=== PATIENT | female | born 1970 | race Two or more races ===

== ENCOUNTER 2024-02-07 05:59 | Inpatient (IN) | payer MEDICAID, OTHER ==
[~2024-02-07] VITALS: Ht 157.5 cm; Wt 72.7 kg
--- NOTE | 2024-02-07 06:19 | ECG ---
[facility] Test Date: 2024-02-07 Test Time: 06:03:27 Pat Name: TI LOGAN Department: ED Room: [address] [place] [address] Gender: F Reference Data Expert: SEDRICK : 1970 Requested By: RICHARD SCHROEDER Order Number: [id number] Reading MD: Rivas Nina Measurements Intervals [place] Rate: 115 P: 65 TN: 180 QRS: 55 QRSD: 93 T: 46 QT: 323 QTc: 447 Interpretive Statements Sinus tachycardia Ventricular premature complex Aberrant complex Electronically Signed On 02-10-2024 12:37:44 PST by Rivas Nina Please click the below link to view image of tracing.
--- NOTE | 2024-02-07 06:46 | ED.PDOC ---
History of Present Illness HPI Comments 53 Y F with PMHX of anxiety, presents to the ED with CC of chest pain. Patient states that she has been experiencing non-radiating chest pain since 0100 this morning, with associated symptoms of bilateral arm numbness and tremors. Patient states that she did consume two beers last night but denies any other heavy ETOH usage. Patient denies tobacco usage or illicit drugs use. Patient denies SOB, body aches, chills, cough, or nasal congestion. 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: Denies all AGRONOMY TECHNICIAN Hx Family History Family History: Unknown Social History Smoker: Non-Smoker Alcohol: Rarely Drugs: Denies Drug Use Lives In: Home Constitutional: denies: chills, diaphoresis, fatigue, fever, malaise, sweats, weakness, others EENTM: denies: blurred vision, double vision, ear bleeding, ear discharge, ear drainage, ear pain, ear ringing, eye pain, eye redness, hearing loss, mouth pain, mouth swelling, nasal discharge, nose bleeding, nose congestion, nose pain, photophobia, tearing, throat pain, throat swelling, voice changes, others Respiratory: denies: cough, hemoptysis, orthopnea, SOB at rest, shortness of breath, SOB with excertion, stridor, wheezing, others Cardiovascular: reports: chest pain; denies: dizzy spells, diaphoresis, Dyspnea on exertion, edema, irregular heart beat, left arm pain, lightheadedness, palpitations, PND, syncope, others Gastrointestinal: denies: abdomen distended, abdominal pain, blood streaked bowels, constipated, diarrhea, dysphagia, difficulty swallowing, hematemesis, melena, nausea, poor appetite, poor fluid intake, rectal bleeding, rectal pain, vomiting, others Genitourinary: denies: abnormal vagina bleeding, burning, dyspareunia, dysuria, flank pain, frequency, hematuria, incontinence, pain, , vagina discharge, urgency, others Neurological: denies: dizziness, fainting, headache, left sided numbness, left sided weakness, numbness, paresthesia, pre-existing deficit, right sided numbness, right sided weakness, seizure, speech problems, tingling, tremors, weakness, others Musculoskeletal: reports: others (BILATERAL ARM NUMBNESS); denies: back pain, gout, joint pain, joint swelling, muscle pain, muscle stiffness, neck pain Integumetry: denies: bruises, change in color, change in hair/nails, dryness, laceration, lesions, lumps, rash, wounds, others Allergic/Immunocompromised: denies: Difficulty Healing, Frequent Infections, Hives, Itching, others Hematologic/Lymphatic: denies: anemia, blood clots, easy bleeding, easy bruising, swollen glands, others Endocrine: denies: excessive hunger, excessive sweating, excessive thirst, excessive urination, flushing, intolerance to cold, intolerance to heat, unexplained weight gain, unexplained weight loss, others Psychiatric: reports: anxiety; denies: bipolar disorder, depression, hopeless, panic disorder, schizophrenia, sleepless, suicidal, others Physical Exam General Appearance: Moderate Distress, Normal HEENT: Normal ENT Inspection, Pharynx Normal, Scleral Icterus (L), Scleral Icterus (R), TMs Normal Neck: Full Range of Motion, Non-Tender, Normal, Normal Inspection Respiratory: Chest Non-Tender, Lungs Clear, No Accessory Muscle Use, No Respiratory Distress, Normal Breath Sounds Cardiovascular: No Edema, No JVD, No Murmur, No Gallop, Normal Peripheral Pulses, Regular Rate/Rhythm Breast Exam: Deferred Gastrointestinal: No Organomegaly, Non Tender, No Pulsatile Mass, Normal Bowel Sounds, Soft Genitalia: Deferred Pelvic: Deferred Rectal: Deferred Extremities: No calf tenderness, Normal capillary refill, Normal inspection, Normal range of motion, Non-tender, No pedal edema Musculoskeletal : Apperance: Normal Neurologic: Alert, graphic design teacher II-XII nml as Tested, No Motor Deficits, Normal Affect, Normal Mood, No Sensory Deficits Cerebellar Function: Normal Reflexes: Normal Skin: Dry, Normal Color, Warm Peripheral Pulses: 3+ Radial (R), 3+ Radial (L) Lymphatic: No Adenopathy Was a procedure done? Was a procedure done?: No Differential Dx Considerations may include: CHONDRITIS, VIRAL, BACTERIAL, ETOH WITHDRAWAL X-Ray, Labs, Meds, VS Vital Signs Date Time Temp Pulse Resp B/P (MAP) Pulse Ox O2 Delivery O2 Flow Rate FiO2 02/07/24 06:03 115 02/07/24 06:00 98.4 115 18 154/107 (123) 100 Lab Test 02/07/24 06:05 Range/Units White Blood Count Pending Red Blood Count Pending Hemoglobin Pending Hematocrit Pending Mean Corpuscular Volume Pending Mean Corpuscular Hemoglobin Pending Mean Corpuscular Hemoglobin Concent Pending Red Cell Distribution Width Pending Platelet Count Pending Mean Platelet Volume Pending Neutrophils (%) (Auto) Pending Lymphocytes (%) (Auto) Pending Monocytes (%) (Auto) Pending Basophils (%) (Auto) Pending Neutrophils # (Auto) Pending Lymphocytes # (Auto) Pending Monocytes # (Auto) Pending Sodium Level Pending Potassium Level Pending Chloride Level Pending Carbon Dioxide Level Pending Anion Gap Pending Blood Urea Nitrogen Pending Creatinine Pending Glomerular Filtration Rate Calc Pending BUN/Creatinine Ratio Pending Serum Glucose Pending Calcium Level Pending Troponin I High Sensitivity Pending Plasma/Serum Blood Alcohol Pending Patient alert. Tachycardia. Blood pressure elevated. Saturation pristine on room air. Possibly withdrawing from alcohol. Sclerae icterus. Establish intravenous access. Was given fluids. Reviewed her history. Counseled patient on effects of drinking for 15 minutes. EKG reviewed does show sinus tachycardia. Explained to the patient. Continue cardiac monitoring. Time of 1ST Reevaluation: 07:00 Reevaluation 1ST: Unchanged Patient Education/Counseling: Diagnosis, Treatment Family Education/Counseling: No Family Present Departure 1 Departure Time of Disposition: 06:49 Impression: Primary Impression: Hypertensive urgency Additional Impressions: Tachycardia Chest pain of unknown etiology Alcohol abuse Disposition: ADMITTED INPATIENT Admit to: Med Surg Condition: Guarded Critical Care Note Critical Care Time?: Yes (45 min-critical care time only) Stability Stability form required: No Heart Score Heart Score: Heart Score Response (Comments) Value History Slightly Suspicious 0 EKG Normal 0 Age 45-64 1 Risk Factors 1 or 2 risk factors 1 Troponin Normal limit 0 Total 2 I personally scribed for RICHARD SCHROEDER MD ([email or web address]) on 02/07/24 at 06:46. Electronically submitted by Johnie Hoover ([email or web address]). I personally scribed for RICHARD SCHROEDER MD ([email or web address]) on 02/07/24 at 06:48. Electronically submitted by Johnie Hoover ([email or web address]). RICHARD SCHROEDER MD Feb 07, 2024 06:46
--- NOTE | 2024-02-07 07:03 | ECG ---
[facility] Test Date: 2024-02-07 Test Time: 06:57:13 Pat Name: TI LOGAN Department: ED Room: [address] [place] [address] Gender: F Php Web Developer: SEDRICK : 1970 Requested By: RICHARD SCHROEDER Order Number: [id number] Reading MD: Rivas Nina Measurements Intervals [place] Rate: 102 P: 50 TN: 145 QRS: 38 QRSD: 89 T: 61 QT: 344 QTc: 449 Interpretive Statements Sinus tachycardia Abnormal R-wave progression, early transition Electronically Signed On 02-10-2024 12:37:56 PST by Rivas Nina Please click the below link to view image of tracing.
[2024-02-07 07:13] LABS: Basophils # (auto) 0 10 ^3/uL (0-0.2); Basophils % (auto) 0.6 % (0.0-2.0); Eosinophils # (auto) 0.1 10 ^3/uL (0-0.8); Hematocrit 41.8 % (36.0-46.0); Hemoglobin 14.5 g/dL (12.2-16.2); Lymphocytes # (auto) 2.4 10 ^3/uL (0.4-5.4); Lymphocytes % (auto) 31.1 % (10.0-50.0); Mean Corpuscular Hemoglobin 32.8 pg (28.0-32.0); Mean Corpuscular Hgb Conc. 34.7 g/dL (32.0-36.0); Mean Corpuscular Volume 94.4 fL (80.0-100.0); Monocytes # (auto) 0.8 10 ^3/uL (0-1.3); Monocytes % (auto) 9.8 % (0.0-12.0); Neutrophils # (auto) 4.4 10 ^3/uL (1.6-8.6); Neutrophils % (auto) 57.5 % (37.0-80.0); Nucleated Red Blood Cells % 0.1 %; Platelet Count (auto) 294 10^3/uL (140-450); Red Blood Cells 4.42 10^6/uL (4.0-5.20); Red Cell Distribution Width 14.4 % (11.8-14.3); White Blood Cell 7.7 10^3/uL (4.4-10.8)
[2024-02-07 07:34] LABS: Chloride 98 mmol/L (98-107); Potassium 3.6 mmol/L (3.5-5.1)
[2024-02-07 07:35] LABS: Anion Gap 14 (5-15); Carbon Dioxide 23 mmol/L (20-31)
[2024-02-07 07:36] LABS: Calcium 10.1 mg/dL (8.7-10.4)
[2024-02-07] MEDS: SODIUM CHLORIDE 0.9% 1,000 ML IV ONE ×3 (07:36→15:13)
[2024-02-07 07:40] LABS: BUN/Creatinine Ratio 7.7 (10.0-20.0); Glucose 104 mg/dL (74-106)
[2024-02-07 07:41] LABS: Blood Alcohol 28.8 mg/dL (<10)
[2024-02-07 07:42] LABS: Blood Urea Nitrogen 6 mg/dL (9-23); Sodium 135 mmol/L (136-145)
[2024-02-07] MEDS: THIAMINE 100mg/ml INJ (200mg/2ml VIAL) IV ONE (07:47)
[2024-02-07] MEDS: ASPirin 325 MG TAB PO ONE (07:47)
[2024-02-07] MEDS: LORazepam 2MG/ML-1ML VIAL IV ONE (07:47)
[2024-02-07] MEDS: chlordiazePOXIDE HCL 5 MG CAP PO ONE (07:47)
[2024-02-07 07:53] VITALS: PULSE 100; RESP 18; O2SAT 100
[2024-02-07 10:10] LABS: Urine Bacteria None Seen /hpf (None Seen)
[2024-02-07 10:45] LABS: Amphetamine Screen, Urine Pos (NEGATIVE); Barbiturate Scree,Urine Neg (NEGATIVE); Benzodiazephine Screen, Urine Neg (NEGATIVE); Cocaine Screen, Urine Neg (NEGATIVE)
[2024-02-07 10:46] LABS: Cannabinoid Screen, Urine Neg (NEGATIVE); Opiate Scree,Urine Neg (NEGATIVE); Phencyclidine Screen, Urine Neg (NEGATIVE); Urine Blood Negative /uL (Negative); Urine Clarity Clear (Clear); Urine Color Light-Yellow (Yellow); Urine Mucus FEW (None Seen); Urine Protein, UAD Negative (Negative); Urine Specific Gravity 1.007 (1.001-1.035); Urine Urobilinogen Normal (Negative); Urine WBC 1 /hpf (0 - 5); Urine pH 5.5 (5.0-9.0)
[2024-02-07] MEDS ORDERED: LORazepam 2MG/ML-1ML VIAL IV PRN (13:45)
[2024-02-07] MEDS ORDERED: DOCUSATE SOD 100 MG CAP PO PRN (13:45)
[2024-02-07] MEDS ORDERED: ONDANSETRON HCL 4 MG/2 ML VIAL IV PRN (13:45)
[2024-02-07] MEDS ORDERED: MORPHINE SULFATE INJ 2 MG/ml SYRG IV PRN (13:45)
[2024-02-07] MEDS ORDERED: NITROGLYCERIN 0.4 MG SL TAB SL PRN (13:45)
--- NOTE | 2024-02-07 13:55 | DVHHP2 ---
Review of Systems Allergies: Coded Allergies: NO KNOWN ALLERGIES (Unverified , 02/07/24) Exam Vital Signs Vital Signs Date Time Temp Pulse Resp B/P (MAP) Pulse Ox O2 Delivery O2 Flow Rate FiO2 02/07/24 07:53 100 18 100 Room Air* 0 21 02/07/24 07:53 98.1 176/117 (136) 98.1 Labs/Xrays Labs Test 02/07/24 06:05 Range/Units White Blood Count 7.7 4.4-10.8 10^3/uL Red Blood Count 4.42 4.0-5.20 10^6/uL Hemoglobin 14.5 12.2-16.2 g/dL Hematocrit 41.8 36.0-46.0 % Mean Corpuscular Volume 94.4 80.0-100.0 fL Mean Corpuscular Hemoglobin 32.8 H 28.0-32.0 pg Mean Corpuscular Hemoglobin Concent 34.7 32.0-36.0 g/dL Red Cell Distribution Width 14.4 H 11.8-14.3 % Platelet Count 294 140-450 10^3/uL Mean Platelet Volume 8.8 6.9-10.8 fL Neutrophils (%) (Auto) 57.5 37.0-80.0 % Lymphocytes (%) (Auto) 31.1 10.0-50.0 % Monocytes (%) (Auto) 9.8 0.0-12.0 % Eosinophils (%) (Auto) 1.0 0.0-7.0 % Basophils (%) (Auto) 0.6 0.0-2.0 % Neutrophils # (Auto) 4.4 1.6-8.6 10 ^3/uL Lymphocytes # (Auto) 2.4 0.4-5.4 10 ^3/uL Monocytes # (Auto) 0.8 0-1.3 10 ^3/uL Eosinophils # (Auto) 0.1 0-0.8 10 ^3/uL Basophils # (Auto) 0 0-0.2 10 ^3/uL Nucleated Red Blood Cells 0.1 % Urine Color Light-yellow Yellow Urine Clarity Clear Clear Urine pH 5.5 5.0-9.0 Urine Specific [place] 1.007 1.001-1.035 Urine Protein Negative Negative Urine Ketones Trace Negative Urine Blood Negative Negative /uL Urine Nitrite Negative Negative Urine Bilirubin Negative Negative Urine Urobilinogen Normal Negative mg/dL Urine Leukocyte Esterase Negative Negative /uL Urine RBC <1 0 - 4 /hpf Urine WBC 1 0 - 5 /hpf Urine Squamous Epithelial Cells Few <5 /hpf Urine Bacteria None seen None Seen /hpf Urine Mucus Few None Seen Urine Glucose Normal Normal mg/dL Sodium Level 135 L 136-145 mmol/L Potassium Level 3.6 3.5-5.1 mmol/L Chloride Level 98 98-107 mmol/L Carbon Dioxide Level 23 20-31 mmol/L Anion Gap 14 5-15 Blood Urea Nitrogen 6 L 9-23 mg/dL Creatinine 0.78 0.550-1.02 mg/dL Glomerular Filtration Rate Calc 91 >90 mL/min BUN/Creatinine Ratio 7.7 L 10.0-20.0 Serum Glucose 104 74-106 mg/dL Calcium Level 10.1 8.7-10.4 mg/dL Troponin I High Sensitivity 3 L </=34 ng/L Urine Opiates Screen Neg NEGATIVE Urine Fentanyl Screen Neg NEGATIVE Urine Barbiturates Screen Neg NEGATIVE Urine Phencyclidine Screen Neg NEGATIVE Urine Amphetamines Screen Pos NEGATIVE Urine Benzodiazepines Screen Neg NEGATIVE Urine Cocaine Screen Neg NEGATIVE Urine Cannabinoids Screen Neg NEGATIVE Plasma/Serum Blood Alcohol 28.8 H <10 mg/dL Assessment/Plan Assessment/Plan cp etoh intox My Orders Orders - YAMEL MENA DNP Procedure Category Date Status Time Admit ADMIT 02/07/24 Verified 13:[address] [facility] 02/07/24 Verified 13:41 Code Status CODE 02/07/24 Verified 13:41 0.9% Ns 1000 Ml PHA 02/07/24 Verified 13:45 Ondansetron Hcl PHA 02/07/24 Verified (Zofran) 13:45 Docusate Sodium PHA 02/07/24 Verified Capsule (Colace 13:45 Complete Blood Count LAB 02/08/24 Verified 04:00 Comprehensive LAB 02/08/24 Verified Metabolic Panel 04:00 Condition: Stable [facility] 02/07/24 Verified 13:41 BRP [facility] 02/07/24 Verified 13:41 Morphine Sulfate PHA 02/07/24 Verified Injection 13:45 Sequential [facility] 02/07/24 Verified Compression Device Librium 50mg Po Q8hr PHA 02/07/24 Verified Day 1 13:45 Librium 50mg Po Q12hr PHA 02/08/24 Verified Day 2 10:00 Librium 25mg Po Q12hr PHA 02/09/24 Verified X Day 3 10:00 Librium 25mg Po Qam PHA 02/10/24 Verified Day 4 07:00 Nitroglycerin [facility] 02/07/24 Verified Sublingual (Ntrostat 13:45 Stat Ekg For Chest [facility] 02/07/24 Verified Pain 13:41 Notify Md Of Changes [facility] 02/07/24 Verified From Base 13:41 Application Support Consultant For [facility] 02/07/24 Verified 24 Hours 13:41 Emergency Dysrhythmia [facility] 02/07/24 Verified Protocol 13:41 Rhythm Strips Once [facility] 02/07/24 Verified Every Shift 13:41 Oxygen By Nasal RT 02/07/24 Verified Cannula 13:41 Blood Alcohol LAB 02/07/24 Verified 13:41 YAMEL MENA [facility] Feb 07, 2024 13:55
[2024-02-07 14:00] VITALS: BP 190/102; PULSE 86; RESP 16; TEMP 98.3; O2SAT 100
[2024-02-07] MEDS: FOLIC ACID 1 MG in D5W 5% 50 ML INJ SCH (14:01)
[2024-02-07 15:09] LABS: Magnesium 1.8 mg/dL (1.6-2.6)
[2024-02-07] MEDS: SODIUM CHLORIDE 0.9% 1,000 ML IV SCH (15:13)
[2024-02-07] MEDS: chlordiazePOXIDE HCL 25 MG CAP PO SCH (15:22)
[2024-02-07 16:02] LABS: Blood Alcohol 5.2 mg/dL (<10)
[2024-02-08] MEDS ORDERED: MULTIPLE VITAMIN TAB PO SCH (10:00)
[2024-02-08] MEDS ORDERED: FOLIC ACID 1 MG in D5W 5% 50 ML INJ SCH (10:00)
[2024-02-08] MEDS ORDERED: chlordiazePOXIDE HCL 25 MG CAP PO SCH (10:00)
[2024-02-08] MEDS ORDERED: THIAMINE 100mg/ml INJ (200mg/2ml VIAL) IV SCH (10:00)
[2024-02-09] MEDS ORDERED: chlordiazePOXIDE HCL 25 MG CAP PO SCH (10:00)
[2024-02-10] MEDS ORDERED: chlordiazePOXIDE HCL 25 MG CAP PO SCH (07:00)
== END 2024-02-07 17:34 | disposition left against medical advice (07) | DRG 199 ==
LOC: ER 05:59 → OVERFLOW 13:41
PROVIDERS: ADMIT Nurse Practitioner Family; ATTEND Nurse Practitioner Family
DX: I16.0 Hypertensive urgency (principal); F10.129 Alcohol abuse with intoxication, unspecified; F41.9 Anxiety disorder, unspecified; Y90.1 Blood alcohol level of 20-39 mg/100 ml
CPT/HCPCS: 36415; 80048; 80307; 80320; 81001; 83735; 84484; 85025; 93005; 99291; G0378; J7060

== ENCOUNTER 2024-11-02 19:36 | Emergency (ER) | payer MEDICAID ==
[~2024-11-02] VITALS: Ht 160 cm; Wt 68.0 kg
[2024-11-02 19:36] VITALS: BP 125/85; PULSE 94; RESP 18; TEMP 98.2; O2SAT 98
[2024-11-02] MEDS: OXYCODONE W/ ACETAMINOPHEN 5/325MG TABLET PO ONE (20:29)
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
== END 2024-11-02 23:33 | disposition home or self-care (01) ==
LOC: EDBD 19:36 → ER 19:36
DX: S01.01XA Laceration without foreign body of scalp, initial encounter (principal); Y08.89XA Assault by other specified means, initial encounter; Z79.899 Other long term (current) drug therapy; Y93.89 Activity, other specified; Y92.89 Other specified places as the place of occurrence of the external cause; Y99.8 Other external cause status
CPT/HCPCS: 12001; 70450; 72125